=== PATIENT | female | born 1980 | race African-American/Black ===

== ENCOUNTER 2025-03-30 13:22 | Emergency (ER) | payer OTHER, SELFPAY ==
[2025-03-30 13:27] VITALS: BP 129/85
--- NOTE | 2025-03-30 14:47 | ED.GENMED ---
History of Present Illness
General
Chief Complaint: Abdominal Symptoms
Source: patient
Time Seen by Provider: 03/30/25 14:34
History of Present Illness
History of Present Illness:
45-year-old female with past medical history of CHF, cardiomyopathy, hypertension, hyperlipidemia, insulin-dependent diabetes, chronic back pain secondary to multiple surgeries presenting to the emergency department for reevaluation after she was
seen at [facility] on for generalized abdominal pain accompanied with nausea, minimal vomitus and diminished p.o. intake to both solids and liquids over the last 2 weeks. Patient states initially the symptoms were more mild but
gradually have gotten worse. She states that it is at the point where she is having a hard time taking any of her medications. She denies any fevers, chills, rigors, urinary symptoms, bowel changes, chest pain, shortness of breath, back or flank
pain or any other concerns. She does note that her usual pain medicine does not seem to be helping. Social history noncontributory. Patient notes that at [facility] she had blood work and a CT scan done. I was able to review the CT scan
which did not show any intra-abdominal or abnormalities
Past History
Past History
ED Past Medical History: CHF, HTN, Hypercholesterolemia, Other (Cardiomyopathy), Other (Ejection fraction of 25% as of February 2017) and Other (PE, DIABETES)
ED Past Surgical History: Cardiac, , Orthopedic and Other (lumbar fusion)
Social History
Tobacco: Non-smoker
Alcohol: None
Drug: None
Personal:
Living: with family
Family History
Family History: Other (no PE, N/c)
Review of Systems
Review of Systems
All Other Systems: ROS reviewed and negative except as documented in HPI and ROS
Phy Exam
Physical Exam
Physical Exam:
GENERAL: Alert , in no apparent distress
EYE: clear conjunctiva b/l
HEAD: NCAT
ENT: mmm.
CARDIAC: Regular rate and rhythm .
LUNGS: Clear breath sounds bilaterally, no acute respiratory distress, no wheezes/rales/rhonchi
ABDOMEN: Soft, without focal tenderness, no r/g, no cvat
NEUROLOGICAL: Alert and oriented
SKIN: Warm and dry, skin intact.
MUSCULOSKELETAL: No edema, well perfused.
PSYCH: Normal and appropriate interaction.
Scores
Heart Failure Risk
Heart Failure Risk Score: Not Applicable
Heart Score for Chest Pain Patients
STEMI patient?: Not applicable
Withdrawal Assessment of Alcohol
Withdrawal Assessment Completed?: Not applicable
Course
Orders/Labs/Results
Orders:
Orders
03/30/25 14:34
Electrocardiogram (*1) Urgent
Reason for Study: Other
Other Reason for Exam: nausea
Test Result ONCE
03/30/25 14:35
EKG- Treatment ONCE
03/30/25 14:45
0.9% Sodium Chloride 1000 ml [Nss] 1,000 ml IV BOLUS
Morphine Sulfate 4 mg IV NOW STA
Ondansetron Injectable [Zofran] 4 mg IV NOW STA
03/30/25 14:59
Complete Blood Count/With Diff Urgent
Comprehensive Metabolic Panel Urgent
HCG, Serum Qualitative Screen Urgent
Troponin I Urgent
Abnormal Lab Results
03/30/25
14:59
RBC 5.79 H 10^6/uL
(4.20-5.40)
MCV 78.9 L fL
(81.0-99.0)
MCH 26.8 L pg
(27.0-31.0)
Absolute Monos (auto) 0.7 H 10^3/uL
(0.1-0.6)
Sodium 133 L mmol/L
(135-145)
Glucose 145 H mg/dl
(70-99)
Total Bilirubin 1.5 H mg/dl
(0.2-1.3)
03/30/25 14:59
03/30/25 14:59
Vital Signs
Initial and Last Documented VS:
Initial Vital Signs
Temp Pulse Resp BP Pulse Ox
98.1 F 102 22 129/85 99
03/30/25 13:27 03/30/25 13:27 03/30/25 13:27 03/30/25 13:27 03/30/25 13:27
Last Documented Vital Signs
Temp Pulse Resp BP Pulse Ox
98.1 F 88 17 159/104 100
03/30/25 13:27 03/30/25 16:45 03/30/25 16:45 03/30/25 16:00 03/30/25 16:45
MDM/Problems Addressed
Differential Diagnosis Includes:
GERD
Gastritis
Peptic ulcer disease
Concern for surgical complication such as appendicitis or cholecystitis thought to be much less likely given normal CT scan just 2 days ago
Mesenteric ischemia considered however patient does not have any known clotting disorder and symptoms do not seem to be exacerbated by food
Urinary tract infection
Atypical ACS presentation
MDM/Problems Addressed:
45-year-old female presented to ER for 2 weeks of abdominal pain, nausea, vomiting and diminished p.o. intake to both solids and liquids. Patient had a full workup at [facility] 2 days ago including labs and CT imaging which I was able to
review and were unremarkable. Will repeat labs, added on an EKG and troponin although my suspicion for cardiac etiology is minimal. Given CT done 2 days ago will defer/hold on any imaging at this time unless there is significant lab abnormalities.
*Pulse Oximetry
SaO2: 99
Oxygen Mode of Delivery: Room air
Patient hypoxic: no
*EKG
Heart Rate: 92
Rate: normal
Rhythm: sinus
Stirling: normal axis
Ischemia: no ischemia
*Critical Care Note
Total Time (30-74mins, 75-104mins- exclusive of procedures): Not Applicable
Data Reviewed
Review of Other/Old Records Reveals: Records and Radiology Studies
Patient Management
Escalation/DeEscalation of care consider admission/obs:
Patient feeling better following IV medication and IV fluids. She feels comfortable being discharged home. Encouraged close follow-up with primary care provider. Aware of return precautions to the emergency department.
ED Attending Note
-
Portions of this chart may have been created with voice recognition software.� Occasional wrong word or��sound alike� substitutions may have occurred due to the inherent limitations of voice recognition software.
Discharge Plan
Departure
Patient Disposition: Home (Routine Discharge)
Date of Disposition: 03/30/25
Time of Disposition: 15:52
Patient with high blood pressure during this ER visit?: Yes
Discharge Problem:
Abdominal pain, Nausea
Instructions: Abdominal Pain
Prescriptions:
New
metoclopramide HCl [Reglan] 10 mg tablet
10 mg PO Q8H PRN (Reason: nausea and vomiting) Qty: 8 0RF
No Action
B-12
500 mg PO DAILY
gabapentin 600 MG tablet
600 mg PO TID
atorvastatin 20 MG tablet
20 mg PO DAILY
diazepam 10 MG tablet
10 mg PO BID
duloxetine 60 MG capsule,delayed release(DR/EC)
60 mg PO DAILY
Fish Oil
1,000 mg PO DAILY
Vitamin D
1,000 mg PO DAILY
metoprolol succinate 100 MG tablet extended release 24 hr
100 mg PO QPM Qty: 30 0RF
apixaban [Eliquis] 5 MG tablet
5 mg PO BID Qty: 70 0RF
oxycodone [OxyContin] 60 MG tablet,oral only,ext.rel.12 hr
60 mg PO Q12
cranberry fruit 1,000 MG capsule
1,000 mg PO BID
cinnamon bark [Cinnamon] 500 MG capsule
500 mg PO DAILY
biotin 1 MG tablet
1 mg PO DAILY
multivitamin [Daily Multiple] 1 EACH tablet
1 ea PO DAILY
spironolactone 50 MG tablet
50 mg PO DAILY
metoprolol succinate 50 MG tablet extended release 24 hr
50 mg PO DAILY
furosemide 80 MG tablet
80 mg PO DAILY
oxycodone 20 MG tablet
20 mg PO Q4 PRN (Reason: pain)
sacubitril-valsartan [Entresto] 1 EACH tablet
1 ea PO BID
cyclobenzaprine 10 MG tablet
10 mg PO TIDPRN PRN (Reason: spasm) Qty: 12 0RF
insulin degludec-liraglutide [Xultophy 100/3.6] 3 ML insulin pen
25 units SQ BID
sulfamethoxazole-trimethoprim 1 TABLET tablet
1 tab PO BID Qty: 14 0RF
mupirocin 1 GRAM ointment
1 g intranasal BID 14 Days 0RF
Rx Instructions:
Use twice a day for one week. Then used for the first 5 days of each month
Referrals:
Jassi Felipe DO [Family Provider, Internal Medicine]
Interventions
Interventions:
*Risk Screen - Suicide Last Done: 03/30/25 13:27
*General Assessment Last Done: 03/30/25 13:27
*Neglect/Abuse Screening Last Done: 03/30/25 13:27
*Nursing Disposition Last Done: 03/30/25 17:08
MV-Yhyvkl-Rgpishowiz Assessment Last Done: 03/30/25 15:04
Discharge Date and Time
Discharge Date/Time: 03/30/25 17:08
Print Language: URDU
[2025-03-30] MEDS: MORPHINE SULFATE 4 MG IV (14:56)
[2025-03-30] MEDS: NSS 1000 IV (14:56)
[2025-03-30] MEDS: ZOFRAN 4 MG IV (14:56)
[2025-03-30 14:57] VITALS: BP 157/105
[2025-03-30 15:00] VITALS: BP 172/102
[2025-03-30 15:14] LABS: Hematocrit 45.7 % (37.0-47.0); Hemoglobin 15.5 g/dL (12.0-16.0); Mean Corp Hgb Conc. 33.9 g/dL (33.0-37.0); Mean Corpuscular Volume 78.9 fL (81.0-99.0); Nucleated Red Blood Cells % 0 %; Platelet Count 291 10^3/uL (130-400); Red Cell Dist. Width 13.4 % (11.5-14.5)
[2025-03-30 15:38] LABS: HCG, Serum Qualitative Screen Negative
[2025-03-30 15:42] LABS: ALT (SGPT) 16 U/L (0-35); AST (SGOT) 15 U/L (14-36); Albumin 4.6 g/dl (3.5-5.0); Alkaline Phosphatase 88 U/L (38-126); Blood Urea Nitrogen 8 mg/dl (7-17); Calcium 9.8 mg/dl (8.4-10.2); Carbon Dioxide 28 mmol/L (22-30); Chloride 99 mmol/L (98-107); Glucose 145 mg/dl (70-99); Potassium 4.0 mmol/L (3.5-5.1); Sodium 133 mmol/L (135-145); Total Protein 7.1 g/dl (6.3-8.2); eGFR > 60.00
[2025-03-30 15:50] LABS: Troponin I < 0.012 ng/ml
[2025-03-30 16:00] VITALS: BP 159/104
== END 2025-03-30 17:08 | disposition home or self-care (01) ==
LOC: EMR 13:22
PROVIDERS: Physician Assistant Medical; EMERGENCY PHYSICIAN Emergency Medicine; FAMILY PHYSICIAN Internal Medicine
DX: R10.84 Generalized abdominal pain (principal); R11.0 Nausea; E11.9 Type 2 diabetes mellitus without complications; E78.00 Pure hypercholesterolemia, unspecified; G89.29 Other chronic pain; I11.0 Hypertensive heart disease with heart failure; I50.9 Heart failure, unspecified; I42.8 Other cardiomyopathies; Z79.4 Long term (current) use of insulin; Z98.1 Arthrodesis status
CPT/HCPCS: 96374; 96375; 96361; 99284; 80053; 84484; 84703; 85025; 93005

== ENCOUNTER 2025-06-05 08:24 | Day surgery (SDC) | payer OTHER, SELFPAY ==
[2025-06-05] VITALS (9 sets, daily range): BP systolic 126–156; BP diastolic 79–108; BMI 30.3
[2025-06-05] MEDS: LOW STRENGTH ASPIRIN 324 MG PO (09:14)
[2025-06-05 09:18] LABS: Hematocrit 48.3 % (37.0-47.0); Hemoglobin 16.0 g/dL (12.0-16.0); Mean Corp Hgb Conc. 33.1 g/dL (33.0-37.0); Mean Corpuscular Volume 80.2 fL (81.0-99.0); Platelet Count 293 10^3/uL (130-400); Red Cell Dist. Width 14.2 % (11.5-14.5)
[2025-06-05 09:21] LABS: Glucose - Point of Care 126 mg/dl (70-99)
[2025-06-05] MEDS: NSS 325 ML IV (09:32)
[2025-06-05 10:11] LABS: Blood Urea Nitrogen 11 mg/dl (7-17); Calcium 9.7 mg/dl (8.4-10.2); Carbon Dioxide 26 mmol/L (22-30); Chloride 103 mmol/L (98-107); Estimated Creatinine Clearance 111 ml/min; Glucose 130 mg/dl (70-99); Potassium 4.3 mmol/L (3.5-5.1); Sodium 139 mmol/L (135-145); eGFR > 60.00
[2025-06-05 11:06] LABS: Glucose - Point of Care 121 mg/dl (70-99)
[2025-06-05] MEDS: NSS 1000 IV (11:18)
--- NOTE | 2025-06-05 13:23 | ITS.CL.CATH ---
Human Resources Benefits Coordinator - Catheterization
Cardiac Catheterization
Procedure Report:
LEFT HEART CATHETERIZATION
Date of Procedure: May 26, 2025
Procedures performed:
1: Coronary angiography
2: Left ventriculography
Primary Care Physician: Dr. Jassi Felipe
Primary Mental Health Advanced Practice Nurse: Dr. Yadiel James
INDICATION: The patient is a 45-year-old woman with a past medical history significant for hypertension and cardiomyopathy who presents with exertional chest tightness. Echocardiography showed reduced ejection fraction visually estimated at 45 to
50%. Nuclear perfusion imaging suggested possible LAD territory ischemia. She is referred for coronary angiography.
ACCESS: The patient was prepped and draped in usual sterile fashion. A 6 [place] sheath was placed in the left radial artery using the Seldinger over the wire technique. The left radial was performed due to a fairly dramatic lack of right radial
pulse on exam suspicious for obstructive more proximal disease.
HEMODYNAMIC FINDINGS (mmHg):
LV(s/d,EDP): 145/10, 12
Ao(s/d,m): 145/96, 118
ANGIOGRAPHIC FINDINGS:
Single-plane Left Ventriculography in ROLLE Projection: Severe global LV systolic dysfunction with a visually estimated ejection fraction of 20%. No significant mitral regurgitation.
Coronary Angiography:
Dominance: Left
Left Main: Short, widely patent.
Left Anterior Descending: The left anterior descending artery is a very large caliber vessel that wraps around the apex to provide a large posterior descending artery running from the apex to the base. There are several small caliber diagonal
branches. All vessels appear angiographically normal with normal flow.
Left Circumflex: The left circumflex is a large caliber vessel that gives rise to 2 large branching obtuse marginal branches and terminates in a distal vessel that feeds a small portion of the basal inferoseptum. These vessels are widely patent
with no focal disease and appear angiographically normal.
Right Coronary: The right coronary artery small nondominant vessel that is angiographically normal.
Other angiography:
1: Aortic arch angiography: In light of her pulse discrepancy in the right radial, I elected to perform a aortic arch angiogram. This revealed a bovine arch with no clear disease in any of the visualized vessels in the chest.
Fluoroscopy Time (min): 3.9
Radiation Dose (mGy): 738
DAP (Gy.cm2): 64
Closure device: None. A TR band was applied for hemostasis at the right wrist.
Complications: None.
ASSESSMENT:
1: Normal coronary arteries. This is a nonischemic cardiomyopathy.
2: Poorly controlled systemic hypertension.
3: No evidence of obstructive proximal great vessel vascular disease to explain the diminished right radial pulse. I suppose this may be occluded from a prior cath but have no records to support this.
CONCLUSIONS and RECOMMENDATIONS:
1: Medical therapy for a nonischemic cardiomyopathy. Continue Entresto, spironolactone, beta-tati, and add Farxiga with close clinical follow-up and med titration.
Dave Erickson M.D.
== END 2025-06-05 13:50 | disposition home or self-care (01) ==
LOC: CATH 08:24
PROVIDERS: ATTENDING PHYSICIAN Internal Medicine Cardiovascular Disease; FAMILY PHYSICIAN Internal Medicine
DX: I11.9 Hypertensive heart disease without heart failure (principal); I42.8 Other cardiomyopathies; E78.00 Pure hypercholesterolemia, unspecified; I50.9 Heart failure, unspecified
CPT/HCPCS: 80048; 82962; 85027; 93458; 93567; C1769; C1894; Q9967